=== PATIENT | female | born 1965 | race Caucasian/White ===

== ENCOUNTER 2017-07-04 18:35 | Emergency (ER) | payer OTHER, BC ==
[~2017-07-04] VITALS: Ht 157.5 cm; Wt 95.3 kg
[2017-07-04 19:01] VITALS: BP 142/83
--- NOTE | 2017-07-04 20:52 | NUR ---
PT TAKEN TO BED 4
--- NOTE | 2017-07-04 20:56 | NUR ---
52 Y/O F W/C/O LEFT UPPER/LOWER ABD PAIN X 1 YEAR ON AND OFF. HX LEFT BREAST CA, S/P LUMPECTOMY 11/2016. ER MADE AWARE.
--- NOTE | 2017-07-04 21:28 | NUR ---
Dr. Luna evaluating patient at bedside.
[2017-07-04] MEDS ORDERED: KETOROLAC 60 MG/2 ML VIAL IM ONE (21:35)
--- NOTE | 2017-07-04 21:52 | NUR ---
PT RESTING IN BED, DAUGHTER AT BEDSIDE. AWATING FOR DC PAPERWORK. NO S/S OF DISTRESS NOTED AT THE MOMENT.
[2017-07-04 22:05] VITALS: BP 102/57
--- NOTE | 2017-07-04 22:05 | NUR ---
Patient discharged with v/s stable. Written and verbal after care instructions given and explained. Patient alert, oriented and verbalized understanding of instructions. Ambulatory with steady gait. All questions addressed prior to discharge. ID band removed. Patient advised to follow up with PMD IN 4-5 DAYS OR RETURN TO ER IF CONDITION WORSENS. Rx of CIPRO, FLAGYL, AND NORCO given. Patient educated on indication of medication including possible reaction and side effects. Opportunity to ask questions provided and answered.
== END 2017-07-04 22:05 | disposition home or self-care (01) ==
LOC: MED 18:35
DX: R10.31 Right lower quadrant pain (principal); R19.7 Diarrhea, unspecified; R11.2 Nausea with vomiting, unspecified; Z85.3 Personal history of malignant neoplasm of breast
CPT/HCPCS: 71010; 81002; 81025; 96372; 99283; J1885